=== PATIENT | female | born 1965 | race Caucasian/White ===

== ENCOUNTER 2021-08-24 18:43 | Emergency (ER) | payer OTHER, SELFPAY ==
--- NOTE | 2021-08-24 18:44 | ECG_ITS ---
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 Measurements Intervals [place] Rate: 69 P: 84 MI: 159 QRS: 64 QRSD: 101 T: 67 QT: 406 QTc: 437 Interpretive Statements SINUS RHYTHM INCOMPLETE RIGHT BUNDLE BRANCH BLOCK Compared to ECG 08/24/2021 18:54:43 Left anterior fascicular block no longer present Electronically Signed On 08-25-2021 16:43:33 CDT by Kinsey Estrada M.D. [id number]
--- NOTE | 2021-08-24 18:49 | XRR_ITS ---
PROCEDURE INFORMATION: Exam: XR Chest Exam date and time: 08/24/2021 5:56 PM Age: 55 years old Clinical indication: Pain; Angina pectoris; Additional info: Cp, PT did not want to remove bra for xray TECHNIQUE: Imaging protocol: XR of the chest. Views: 1 view. COMPARISON: CR Chest 1 [place] [id number] 11/18/2014 2:02 PM FINDINGS: Lungs: The lungs are clear. Pleural spaces: Unremarkable. No pleural effusion. No pneumothorax. Heart/Mediastinum: Unremarkable. No cardiomegaly. Bones/joints: No acute fracture is visualized. Soft tissues: Surgical clips are again seen in the right chest wall/right breast region. XR/XR chest 1V portable [id number] IMPRESSION: No acute cardiopulmonary abnormality is seen.
[2021-08-24 18:50] VITALS: BP 128/68; PULSE 78; RESP 18; TEMP 36.7; O2SAT 95; BMI 27.2
--- NOTE | 2021-08-24 19:07 | ED_ITS ---
HPI - Chest Pain General: Chief Complaint: Chest Pain Stated Complaint: Chest Pain Time Seen by Provider: 08/24/21 19:00 Source: patient Mode of arrival: ambulatory Limitations: no limitations History of Present Illness: 55-year-old female who states that she has been having chest pains over the last 2 days. States has been having a sharp pain in the right side of her chest that seem to go to her shoulder along with her back with some dyspnea. States she does have some tenderness over her chest wall denies any diaphoresis. She states the pain is mainly been constant and has no worsening improving factors. States pain currently is a 5 out of 10 no vomiting no abdominal pain. Associated symptoms: Reports dyspnea; Deny abdominal pain, fever(s), nausea or vomiting Review of Systems Const: Denies: fever(s), chills, body aches or change in appetite Eyes: Denies: blurry vision or eye discomfort ENMT: Denies: throat pain or dental pain Card: Reports: chest pain Resp: Reports: dyspnea GI: Denies: abdominal pain, nausea, vomiting or diarrhea : Denies: dysuria Musc: Denies: neck pain or back pain Skin/Breast: Denies: rash Neuro: Denies: headache(s) Psych: Denies: depression Rob/Lymph: Denies: easy bruising All/Imm: Denies: urticaria PFSH ED PFSH: Medical History Depression Hyperlipidemia Surgical History No pertinent past surgical history Social History Smoking and tobacco status: current every day smoker Physical Exam Const: COMMON NORMALS: no acute distress, patient oriented x3 and healthy appearing HENMT: COMMON NORMALS: normocephalic and atraumatic HEAD & SCALP: normocephalic and atraumatic Eye: COMMON NORMALS: Equal, round and reactive pupils present and EOMs intact bilaterally PUPIL: Yes Equal, round and reactive pupils present Neck/C-Spine: COMMON NORMALS: full ROM and supple Chest: COMMONS NORMALS: normal inspection of the chest; negative for normal palpation of entire chest wall (right side chest tenderness) Resp: COMMON NORMALS: normal respiratory effort, No retractions, No use of accessory muscles and clear to auscultation bilaterally AUSCULTATION: clear to auscultation bilaterally Cardio: COMMON NORMALS: regular rate, regular rhythm and No murmurs present (Cardio) RATE: regular rate RHYTHM: regular rhythm GI: COMMON NORMALS: Normal to inspection, nondistended, normoactive bowel sounds present, Soft to palpation, non-tender and no masses PALPATION: Yes Soft to palpation Extremity: COMMON NORMALS: normal to inspection and full ROM Neuro: COMMON NORMALS: patient oriented x3, moves all extremities and no focal motor deficits Psych: COMMON NORMALS: mental status grossly normal, Normal thought process present and cooperative THOUGHT PROCESS: Normal thought process present Skin: COMMON NORMALS: no rashes or lesions noted and no wounds GENERAL SKIN EXAM: no rashes or lesions noted Course Vital Signs: Vital signs: Vital Signs Temperature 98.0 F 08/24/21 18:50 Pulse Rate 78 08/24/21 18:50 Respiratory Rate 18 08/24/21 18:50 Blood Pressure 128/68 08/24/21 18:50 Pulse Oximetry 95 08/24/21 18:50 MDM - Chest Pain Medical Decision Making Patient presents here with chest pains atypical in nature likely muscle skeletal as she is tender on exam. Patient's initial repeat troponin here negative D- dimer is negative as well she has no signs of aortic dissection or pulmonary embolism she is stable for discharge is to follow-up with her PCP in 3 to 5 days and return if worsening she understands and agrees to plan. Lab Data : 08/24/21 19:10 08/24/21 19:10 Radiology Impressions Chest X-Ray 08/24/21 18:49 IMPRESSION: No acute cardiopulmonary abnormality is seen. Laboratory Results WBC 13.0 10^3/uL (4.0-10.0) H 08/24/21 19:10 RBC 5.21 10^6/uL (4.1-5.3) 08/24/21 19:10 Hgb 13.6 g/dL (11.5-15.3) 08/24/21 19:10 Hct 43.8 % (37.0-47.0) 08/24/21 19:10 MCV 84.1 fl (81-99) 08/24/21 19:10 MCH 26.1 pg (28.0-34.0) L 08/24/21 19:10 MCHC 31.1 g/dL (30.0-36.0) 08/24/21 19:10 RDW 15.6 % (12.1-15.1) H 08/24/21 19:10 Plt Count 316 10^3/cmm (130-400) 08/24/21 19:10 MPV 11.5 fL (7.4-10.4) H 08/24/21 19:10 Neut % (Auto) 41.1 % 08/24/21 19:10 Lymph % (Auto) 46.5 % 08/24/21 19:10 Hendricks % (Auto) 9.2 % 08/24/21 19:10 Eos % (Auto) 2.5 % 08/24/21 19:10 Baso % (Auto) 0.5 % 08/24/21 19:10 Neut # (Auto) 5.33 10^3/uL (1.8-7.7) 08/24/21 19:10 Lymph # (Auto) 6.0 10^3/uL (0.8-4.8) H 08/24/21 19:10 Hendricks # (Auto) 1.2 10^3/uL (0.2-0.9) H 08/24/21 19:10 Eos # (Auto) 0.3 10^3/uL (0.0-0.8) 08/24/21 19:10 Baso # (Auto) 0.1 10^3/uL (0.0-0.1) 08/24/21 19:10 Nucleated RBC % (auto) 0 % 08/24/21 19:10 Nucleated RBCs # 0.0 /100WBC 08/24/21 19:10 D-Dimer <= 0.27 ug/mIFEU (0-0.59) 08/24/21 19:10 Sodium 140 mmol/L (136-145) 08/24/21 19:10 Potassium 4.1 mmol/L (3.5-5.1) 08/24/21 19:10 Chloride 104 mmol/L (98-107) 08/24/21 19:10 Carbon Dioxide 23 mmol/L (22-29) 08/24/21 19:10 Anion Gap 17.1 (5-19) 08/24/21 19:10 BUN 11 mg/dL (6-20) 08/24/21 19:10 Creatinine 0.4 mg/dL (0.5-0.9) L 08/24/21 19:10 GFR Calculation 166.3 mL/min (90-130) H 08/24/21 19:10 Glucose 91 mg/dL (65-115) 08/24/21 19:10 Calculated Osmolality 289 mOsm/kg (285-295) 08/24/21 19:10 Calcium 9.6 mg/dL (8.5-10.5) 08/24/21 19:10 Total Bilirubin 0.2 mg/dL (0.15-1.2) 08/24/21 19:10 AST 21 U/L (0-32) 08/24/21 19:10 ALT 19 U/L (0-33) 08/24/21 19:10 Alkaline Phosphatase 101 IU/L (35-105) 08/24/21 19:10 Troponin T Baseline 6 ng/L (0-10) 08/24/21 19:10 Troponin T 120 Minute 7.74 ng/L (0-10) 08/24/21 20:59 Delta Troponin T 1.74 ABS# (0-10) 08/24/21 20:59 Total Protein 7.2 g/dL (6.6-8.7) 08/24/21 19:10 Albumin 4.4 g/dL (3.5-5.2) 08/24/21 19:10 Globulin 2.8 g/dL (1.3-4.6) 08/24/21 19:10 EKG Data EKG 1: I personally reviewed and interpreted this EKG as follows: EKG interpretation date: 08/24/21 EKG interpretation time: 18:54 Interpretation: nsr hr [address] or t wave abnormalities qrs 97 qtc 409 Discharge Plan Discharge Patient Disposition: Home Clinical Impression: Chest pain Condition: Stable Prescriptions: No Action montelukast 10 mg tablet 10 mg PO DAILY 0RF rosuvastatin 10 mg tablet 10 mg PO DAILY 0RF venlafaxine 37.5 mg tablet 37.5 mg PO DAILY 0RF clobetasol 0.05 % ointment 1 applic topical BID 14 Days Qty: 45 2RF Rx Instructions: Apply to affected area for 2 weeks and alternate with Triamcinolone. Not for face or skin folds. triamcinolone acetonide 0.1 % ointment 1 applic topical BID Qty: 30 2RF Rx Instructions: Apply to affected area for 2 weeks and alternate with Clobetasol. Not for fa ce. Discharge Orders: Discharge ED (Routine); Ordered 08/24/21 Ordered By: Herbert Jay Referrals: Sophia Simms FNP [Primary Care Provider] - Discharge Diet: Advance as tolerated Discharge Activity: Resume usual activity Patient Instructions: Chest Pain (ED) Coding Level of Care Code ED Event Marketing Specialist for Chg Fwd Exam Comprehensive
[2021-08-24 19:29] LABS: Basophils # 0.1 10^3/uL (0.0-0.1); Basophils % 0.5 %; Eosinophils # 0.3 10^3/uL (0.0-0.8); Eosinophils % 2.5 %; Hematocrit 43.8 % (37.0-47.0); Hemoglobin 13.6 g/dL (11.5-15.3); Lymphocytes % 46.5 %; Mean Corpuscular HGB Conc 31.1 g/dL (30.0-36.0); Mean Corpuscular Hemoglobin 26.1 pg (28.0-34.0); Mean Corpuscular Volume 84.1 fl (81-99); Mean Platelet Volume 11.5 fL (7.4-10.4); Monocytes # 1.2 10^3/uL (0.2-0.9); Monocytes % 9.2 %; Neutrophils # 5.33 10^3/uL (1.8-7.7); Neutrophils % 41.1 %; Nucleated Red Blood Cells % 0 %; Platelet Count 316 10^3/cmm (130-400); Red Blood Count 5.21 10^6/uL (4.1-5.3); Red Cell Distribution Width 15.6 % (12.1-15.1)
[2021-08-24 19:49] LABS: Alanine Aminotransferase 19 U/L (0-33); Albumin Level 4.4 g/dL (3.5-5.2); Alkaline Phosphatase 101 IU/L (35-105); Anion Gap 17.1 (5-19); Aspartate Amino Transferase 21 U/L (0-32); Blood Urea Nitrogen 11 mg/dL (6-20); Calcium 9.6 mg/dL (8.5-10.5); Carbon Dioxide 23 mmol/L (22-29); Chloride 104 mmol/L (98-107); Globulin 2.8 g/dL (1.3-4.6); Glomerular Filtration Rate 166.3 mL/min (90-130); Glucose 91 mg/dL (65-115); Osmolality Calculated 289 mOsm/kg (285-295); Potassium 4.1 mmol/L (3.5-5.1); Sodium 140 mmol/L (136-145); Total Bilirubin 0.2 mg/dL (0.15-1.2); Total Protein 7.2 g/dL (6.6-8.7)
[2021-08-24 19:50] LABS: Troponin(5th) Baseline 6 ng/L (0-10)
[2021-08-24 19:54] LABS: Slide Review Slide Review Perform
[2021-08-24] MEDS: ondansetron 2 mg/ML SDV 2 mL 4 MG IVP (20:15)
[2021-08-24] MEDS: morphine 4 mg/mL SDV 1 mL IVP (20:15)
[2021-08-24 20:21] LABS: D Dimer <= 0.27 ug/mIFEU (0-0.59)
--- NOTE | 2021-08-24 20:44 | ECG_ITS ---
[facility] Test Date: 2021-08-24 Pat Name: Arlette Lopez Department: Room: Gender: Female Director Hris: : 1965 Requested By: Herbert Jay Order Number: [id number] Jay MD: Juan Jose Culp M.D. Measurements Intervals [place] Rate: 72 P: 79 ND: 142 QRS: -57 QRSD: 97 T: 82 QT: 385 QTc: 423 Interpretive Statements SINUS RHYTHM INCOMPLETE RIGHT BUNDLE BRANCH BLOCK [90+ ms QRS DURATION, TERMINAL R IN V1/V2, 40+ ms S IN I/aVL/V4/V5/V6] LEFT ANTERIOR FASCICULAR BLOCK [QRS AXIS <= -45, QR IN I, RS IN II] No previous ECG available for comparison Electronically Signed On 08-24-2021 20:43:34 CDT by Juan Jose Culp M.D. [email or web address]/store/[id number]
[2021-08-24 21:31] LABS: Troponin 5 2HR 7.74 ng/L (0-10)
[2021-08-24 21:38] LABS: Troponin 5 2HR Delta 1.74 ABS# (0-10)
== END 2021-08-24 21:56 | disposition home or self-care (01) ==
PROVIDERS: Emergency Provider Emergency Medicine; PCP Nurse Practitioner Family
DX: R07.9 Chest pain, unspecified (principal); E78.5 Hyperlipidemia, unspecified; F17.210 Nicotine dependence, cigarettes, uncomplicated
CPT/HCPCS: 71045; 80053; 84484; 85025; 85378; 93005; 96374; 96375; 99284; J2270; J2405

== ENCOUNTER 2022-01-07 13:02 | Outpatient (CLI) | payer OTHER, SELFPAY ==
--- NOTE | 2022-01-07 12:45 | USCV_ITS ---
Arlette Lopez Age: 56 Gender: F : 1965 Exam Date: 01/07/2022 14:07 Ordering Phys: Derrick Guillen M.D ([email or web address]) Technologist: DEVI [place]am Location[place] [facility] [place] Indication: cp, palpitations BP: 108 / 60 HR: 69 Rhythm: Sinus Technical Quality: adequate MEASUREMENTS (Male / Female) Normal Values 2D ECHO LV Diastolic Diameter PLAX 3.9 cm 4.2 - 5.9 / 3.9 - 5.3 cm LV Systolic Diameter PLAX 2.4 cm IVS Diastolic Thickness 0.9 cm 0.6 - 1.0 / 0.6 - 0.9 cm IVS Systolic Thickness 1.3 cm LVPW Diastolic Thickness 1.1 cm 0.6 - 1.0 / 0.6 - 0.9 cm LVPW Systolic Thickness 1.4 cm LVOT Diameter 2.0 cm LV Ejection Fraction 2D Teich 69.4 % LV Ejection Fraction MOD 2C 77.3 % LV Ejection Fraction 2C AL 77.6 % LA Diameter 2.7 cm RA Width 2.3 cm RA Height 3.5 cm Aorta at Sinotubular Diameter 1.9 cm M-MODE MV E Point Septal Separation 0.1 cm DOPPLER AV Peak Velocity 103.0 cm/s LVOT Peak Velocity 99.0 cm/s AV Area Cont Eq vti 2.9 cm squared AV Area Cont Eq pk 2.9 cm squared MV Area PHT 3.9 cm squared Mitral E to A Ratio 1.5 MV E' Velocity 59.0 cm/s Mitral E to MV E' Ratio 8.9 Mitral E to LV E' Lateral Ratio 9.9 Mitral E to LV E' Septal Ratio 8.1 TR Peak Velocity 261.0 cm/s TR Peak Gradient 27.2 mmHg Right Atrial Pressure 5.0 mmHg Pulmonary Artery Systolic Pressu 32.2 mmHg PV Peak Velocity 73.0 cm/s FINDINGS Left Ventricle Normal left ventricular size. LV systolic function is normal with EF of 55-60%. No regional wall motion abnormalities. Diastolic function is normal Right Ventricle The right ventricle is normal in size and function. Right Atrium The right atrium is normal in size. Left Atrium The left atrium is normal in size. Mitral Valve Structurally normal mitral valve without significant stenosis or prolapse. There is trace mitral regurgitation. Aortic Valve Structurally normal aortic valve without significant sclerosis or stenosis. There is no aortic regurgitation. Tricuspid Valve Structurally normal tricuspid valve without significant stenosis. Mild tricuspid regurgitation. Pulmonary artery systolic pressure is normal. Pulmonic Valve Not well-visualized Pericardium Normal pericardium without effusion. Aorta Normal ascending aorta dimension. IVC CONCLUSIONS LV systolic function is normal with EF of 55 to 60%. Diastolic function is normal. Trace mitral regurgitation. Mild tricuspid regurgitation. No comparison studies are available. Derrick Guillen MD (Electronically Signed) Final Date: 16 January 2022 10:51 S
== END 2022-01-07 13:03 | disposition home or self-care (01) ==
LOC: RAD 13:02
PROVIDERS: PCP Nurse Practitioner Family; Visit Provider Internal Medicine
DX: R06.02 Shortness of breath (principal); R00.2 Palpitations; R07.9 Chest pain, unspecified; I08.1 Rheumatic disorders of both mitral and tricuspid valves
CPT/HCPCS: 93306

== ENCOUNTER 2022-01-14 06:56 | Outpatient (CLI) | payer OTHER, SELFPAY ==
--- NOTE | 2022-01-14 | ECG_ITS ---
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 Interpretive Statements NAME OF STUDY: LEXISCAN SESTAMIBI STRESS TEST INDICATION: [SOB] Procedure: At the baseline, the blood pressure was 108/68 mmHg with a heart rate of 65 bpm. The electrocardiogram showed normal sinus rhythm, normal axis with normal ST and T's. The Lexiscan was infused over a period of 20 seconds. A total of 0.4 mg of Lexiscan was infused. The stress phase was continued for a total of 5 minutes. Heart rate was at the end of stress phase was 91 bpm and a blood pressure of 91/58 mmHg. The EKG at the peak infusion revealed since normal sinus rhythm with no significant ST-T wave changes. Sestamibi was injected 20 seconds after the Lexiscan infusion. Blood pressure at the end of recovery phase was 97/59 mmHg with a heart rate of 83 bpm. Conclusion: 1. Normal EKG response to Lexiscan infusion 2. No Lexiscan induced chest pain or cardiac arrhythmia. 3. Normal blood pressure and heart rate response. 4. Sestamibi/sestamibi perfusion scan pending; see separate report. Electronically Signed On 01-25-2022 0:12:11 CDT by Derrick Guillen M.D. [email or web address].[email or web address]/store/[id number]
--- NOTE | 2022-01-14 07:03 | NMCV_ITS ---
NM brenna perf SPECT r/s* [id number] Arlette Lopez Age: 56 Gender: F : 1965 Exam Date: 01/14/2022 08:02 Ordering Phys: Derrick Guillen M.D ([email or web address]) Technologist: ZI Lawler Exam Location: [facility] Indications: SHORTNESS OF BREATH STRESS TEST Please [facility] IMAGE PROTOCOL Rest/Stress 1 Lexiscan Day Radiopharmaceutical Dose (mCi) Administration Site Administered by Rest: Tc-99m 10.8 IV ZI Farr Sestamibi Stress:Tc-99m 33.0 IV ZI Farr Sestamibi Rest: 14-Jan-2022 60 Discovery 630 Stress: 14-Jan-2022 30 Discovery 630 0.4mg Lexiscan. Images obtained in supine and prone position. SPECT RESULTS Technical Quality: Excellent Raw Data Analysis: Normal Image Corrections: No attenuation or motion correction applied Summed Stress Score: 0 Summed Rest Score: 3 Summed Difference Score: 0 PERFUSION FINDINGS SPECT images demonstrate homogeneous tracer distribution throughout the myocardium. FUNCTIONAL RESULTS (calculated via Gated SPECT) Stress Image LV EF (%): 87 Stress EDV (mL):60 TID: 1.29 Stress ESV (mL):8 FUNCTIONAL FINDINGS: There is normal left ventricular systolic function. Elevated TID ratio IMPRESSIONS 1. Normal myocardial perfusion imaging with no evidence of ischemia 2. LV systolic function is normal Derrick Guillen MD (Electronically Signed) Final Date: 15 January 2022 14:37 S
[2022-01-14 07:14] VITALS: BMI 28.5
[2022-01-14] MEDS: regadenoson 0.4 Mg/5 ml Syringe IVP (08:34)
[2022-01-14 09:13] VITALS: BP 100/62; PULSE 85
== END 2022-01-14 06:57 | disposition home or self-care (01) ==
LOC: CDL 06:56
PROVIDERS: PCP Nurse Practitioner Family; Visit Provider Internal Medicine
DX: R06.02 Shortness of breath (principal)
CPT/HCPCS: 78452; 93017; A9500; J2785

== ENCOUNTER 2023-05-16 16:53 | Emergency (ER) | payer OTHER, SELFPAY ==
[2023-05-16 17:22] VITALS: BP 118/78; PULSE 66; RESP 18; TEMP 36.7; O2SAT 98; BMI 26.4
[2023-05-16 17:58] LABS: Basophils # 0.1 10^3/uL (0.0-0.1); Basophils % 0.6 %; Eosinophils # 0.3 10^3/uL (0.0-0.8); Eosinophils % 2.5 %; Hematocrit 44.2 % (36-47); Lymphocytes # 6.3 10^3/uL (0.8-4.8); Lymphocytes % 49.4 %; Mean Platelet Volume 11.2 fL (7.4-10.4); Monocytes # 0.8 10^3/uL (0.2-0.9); Monocytes % 6.4 %; Neutrophils # 5.17 10^3/uL (1.8-7.7); Neutrophils % 40.9 %; Nucleated Red Blood Cells % 0 %; Platelet Count 307 10^3/cmm (157-399); Red Blood Count 5.26 10^6/uL (3.85-5.65); Red Cell Distribution Width 15.9 % (12.1-15.1); White Blood Count 12.64 10^3/uL (3.29-11.43)
--- NOTE | 2023-05-16 18:07 | CTR_ITS ---
PROCEDURE INFORMATION: Exam: CT Abdomen And Pelvis With Contrast Exam date and time: 05/16/2023 6:49 PM Age: 57 years old Clinical indication: Abdominal pain; Flank; Left; Prior surgery; Surgery date: 6+ months; Surgery type: Partial hyster; Additional info: Flank pain and llq abdominal pain. , Patient is also having back pain. Please comment on the TECHNIQUE: Imaging protocol: Computed tomography of the abdomen and pelvis with contrast. Radiation optimization: All CT scans at this facility use at least one of these dose optimization techniques: automated exposure control; mA and/or kV adjustment per patient size (includes targeted exams where dose is matched to clinical indication); or iterative reconstruction. Contrast material: OMNI 350; Contrast volume: 100 ml; Contrast route: INTRAVENOUS (IV); REPORTING DATA: Count of CT and Cardiac NM exams in prior 12 months: This patient has received 0 known CTs and 0 known cardiac nuclear medicine studies in the 12 months prior to the current study. COMPARISON: US gall bladder [id number] 09/01/2021 8:20 AM RADIATION DOSE METRICS: Total DLP (mGy-cm): 407.22 FINDINGS: Liver: Normal. No mass. Gallbladder and bile ducts: Normal. No calcified stones. No ductal dilation. Pancreas: Normal. No ductal dilation. Spleen: Atrophic spleen. Question prior injury. Adrenal glands: Normal. No mass. Kidneys and ureters: Normal. No hydronephrosis. Stomach and bowel: Unremarkable. No obstruction. No mucosal thickening. Appendix: No evidence of appendicitis. Intraperitoneal space: Unremarkable. No free air. No significant fluid collection. Vasculature: Unremarkable. No abdominal aortic aneurysm. Lymph nodes: Unremarkable. No enlarged lymph nodes. Urinary bladder: Unremarkable as visualized. Reproductive: Unremarkable as visualized. Bones/joints: Unremarkable. No acute fracture. Soft tissues: Unremarkable. CT/CT abdomen pelvis w con* [id number] IMPRESSION: 1. No bowel obstruction or inflammatory process associated with the bowel. 2. No free air or significant free fluid in the abdomen or pelvis. 3. The appendix images normally. 4. No hydronephrosis or renal calculus. No stone in the bladder.
--- NOTE | 2023-05-16 18:09 | ED_ITS ---
HPI - Abdominal Pain 2 General: Chief Complaint: Abdominal Pain Stated Complaint: sent over by anatoly espinosa lower back pain/ stomac Time Seen by Provider: 05/16/23 17:23 History of Present Illness: Patient is a 57-year-old female with a past medical history significant for hyperlipidemia and depression who presents to the emergency department for evaluation of left lower quadrant abdominal pain. Patient reports that over the last month she has been struggling with frequent urinary tract infections and has taken 3 courses of antibiotics. Patient states that she took her last dose of antibiotic last week. Patient states that she no longer has urinary symptoms, however, on approximately 05/12/2023 she started to experience left lumbar back pain. Patient denies any trauma or event that could have elicited her symptoms. Patient originally thought nothing of it, however, on 05/14/2023 the pain started to migrate into the left lower quadrant of her abdomen. Patient states that she was advised by her primary care provider to present to the emergency department to receive a CAT scan to rule out diverticulitis or kidney stone. Patient currently rates her pain as a 9 out of 10 in severity that she describes as a sharp/stabbing sensation. She denies constipation, diarrhea, dysuria, hematuria, chest pain, shortness of breath, palpitations, fever, chills, nausea, vomiting, numbness or tingling in the bilateral lower extremities, saddle anesthesia, bowel or bladder incontinence, or history of IV drug abuse. Or any other associated symptoms. No other complaints at this time. Associated Symptoms: Denies chills, constipation, diarrhea, dysuria, fever(s), hematuria, nausea and vomiting Review of Systems 2 General: Reports: 10 or more systems reviewed and unremarkable except in HPI and below Const: Denies: fever(s) or chills Eyes: Denies: change in vision or blurry vision ENMT: Denies: throat pain, ear or mastoid pain, ear discharge, nasal discharge or nasal congestion Card: Denies: chest pain, palpitations or lightheadedness Resp: Denies: dyspnea, productive cough, non-productive cough or wheezing GI: Reports: abdominal pain; Denies: nausea, vomiting, diarrhea or constipation : Reports: flank pain; Denies: dysuria or hematuria Musc: Reports: back pain; Denies: neck pain or extremity pain Skin/Breast: Denies: rash PFSH ED 2 PFSH: Medical History Depression Hyperlipidemia Surgical History No pertinent past surgical history Family History Father Hypertension Heart attack Social History Smoking and tobacco/nicotine status: current every day tobacco/nicotine user Alcohol intake: current Alcohol intake frequency: holidays/special occasions only Substance/Drug Use: never Physical Exam 2 Const: COMMON NORMALS: no acute distress, average body habitus, patient oriented x3 and alert HENMT: COMMON NORMALS: normocephalic, atraumatic, moist oral mucous membranes and oropharynx normal HEAD & SCALP: normocephalic and atraumatic Eye: COMMON NORMALS: Equal, round and reactive pupils present, EOMs intact bilaterally, conjunctivae normal and no scleral icterus CONJUNCTIVA: Yes conjunctivae normal PUPIL: Yes Equal, round and reactive pupils present Neck/C-Spine: COMMON NORMALS: full ROM, no lymphadenopathy, supple, no meningeal signs and no JVD Chest: COMMONS NORMALS: normal inspection of the chest Resp: COMMON NORMALS: normal respiratory effort, No retractions, No use of accessory muscles and clear to auscultation bilaterally AUSCULTATION: clear to auscultation bilaterally Cardio: COMMON NORMALS: no JVD, regular rate, regular rhythm, No gallops present (Cardio), No clicks present (Cardio), No murmurs present (Cardio) and No rub (Cardio) RATE: regular rate RHYTHM: regular rhythm GI: OTHER: Normoactive bowel sounds in all 4 quadrants. Left lower and left upper quadrant tenderness noted to palpation. No McBurney's point tenderness, Enamorado sign, or peritoneal signs noted. No evidence of rebound tenderness. Back/Pelvis: OTHER: Left CVA tenderness noted to palpation. No midline vertebral tenderness is noted to the thoracic or lumbar spine. No bony abnormalities or step-offs noted. No swelling, erythema, or ecchymosis appreciated to the affected area. Extremity: OTHER: Moving bilateral upper and lower extremities without weakness or deficit. Neuro: COMMON NORMALS: patient oriented x3 SENSORIUM/ORIENTATION: Yes alert MENINGEAL SIGNS: Yes no meningeal signs OTHER: Sensation intact to the bilateral upper and lower extremities. Patient is alert and oriented x 4. No focal neurological deficits noted on examination. Course 2 Vital Signs: Vital signs: Vital Signs Temperature 98.1 F 05/16/23 17:22 Pulse Rate 66 05/16/23 18:18 Respiratory Rate 18 05/16/23 17:22 Blood Pressure 119/57 05/16/23 18:18 Pulse Oximetry 98 05/16/23 18:18 Oxygen Delivery Me thod Room Air 05/16/23 18:18 MDM - Abdominal Pain Medical Decision Making Patient is a 57-year-old female with a past medical history significant for hyperlipidemia and depression who presents to the emergency department for evaluation of left lower quadrant abdominal pain. On physical examination patient is nontoxic and in no acute distress. Vital signs remained stable throughout the ED course. Patient is afebrile. Patient is neurovascularly intact. CBC showed mild leukocytosis at 12.64. Patient states that she has chronic leukocytosis and this is not necessarily a new symptom for her. CMP, lipase, and urinalysis all grossly unremarkable. CT of the abdomen and pelvis with contrast showed no acute intra-abdominal pathology. Based off history and physical examination I do not believe the patient's symptoms are emergent and warrant further emergent evaluation at this time. Symptoms likely related to musculoskeletal pain. Patient denies numbness or tingling in the bilateral lower extremities, bowel or bladder incontinence, saddle anesthesia, fever, or history of IV drug abuse. Given the patient's extensive allergy list I will treat with cyclobenzaprine and have the patient follow-up with her primary care provider. A prescription of cyclobenzaprine was sent to her pharmacy be picked up. Take medication as prescribed. Do not drive or operate heavy machinery while taking this medication as it can make you drowsy. Increase oral hydration. Avoid strenuous physical activity for the next several days that can exacerbate your symptoms. Do not bend over to lift heavy objects off the ground. Ice can be placed over the affected area 15 to 20 minutes 5-6 times a day. Call your primary care provider tomorrow with an update of your symptoms and to schedule appointment for further management/evaluation. See handouts over generalize instructions. Return to the emergency department for any rapid or worsening symptoms to include but not limited to numbness or tingling in her bilateral lower extremities, groin numbness, bowel or bladder incontinence, fever, extremity weakness, worsening abdominal pain, or as needed. Patient stated understanding of all discharge instructions was agreeable to plan of care. I discussed the patient's history, exam, and all findings with Dr. Jay in the emergency department who agreed my assessment and plan. He did not feel the patient required admission or further evaluation at this time. Differential diagnosis includes but is not limited to nephrolithiasis, diverticulitis, pancreatitis, urinary tract infection, lumbar back spasm, lumbar back strain, cauda equina syndrome, spinal epidural abscess, discitis, Lab Data 05/16/23 17:41 05/16/23 17:41 Labs/Radiology: Radiology Impressions Abdomen/Pelvis CT 05/16/23 18:07 IMPRESSION: 1. No bowel obstruction or inflammatory process associated with the bowel. 2. No free air or significant free fluid in the abdomen or pelvis. 3. The appendix images normally. 4. No hydronephrosis or renal calculus. No stone in the bladder. Laboratory Results WBC 12.64 10^3/uL (3.29-11.43) H 05/16/23 17:41 RBC 5.26 10^6/uL (3.85-5.65) 05/16/23 17:41 Hgb 13.70 g/dL (11.27-16.99) 05/16/23 17:41 Hct 44.2 % (36-47) 05/16/23 17:41 MCV 84.0 fl (85-98) L 05/16/23 17:41 MCH 26.0 pg (27-33) L 05/16/23 17:41 MCHC 31.0 g/dL (30-55) 05/16/23 17:41 RDW 15.9 % (12.1-15.1) H 05/16/23 17:41 Plt Count 307 10^3/cmm (157-399) 05/16/23 17:41 MPV 11.2 fL (7.4-10.4) H 05/16/23 17:41 Neut % (Auto) 40.9 % 05/16/23 17:41 Lymph % (Auto) 49.4 % 05/16/23 17:41 [place] % (Auto) 6.4 % 05/16/23 17:41 Eos % (Auto) 2.5 % 05/16/23 17:41 Baso % (Auto) 0.6 % 05/16/23 17:41 Neut # (Auto) 5.17 10^3/uL (1.8-7.7) 05/16/23 17:41 Lymph # (Auto) 6.3 10^3/uL (0.8-4.8) H 05/16/23 17:41 [place] # (Auto) 0.8 10^3/uL (0.2-0.9) 05/16/23 17:41 Eos # (Auto) 0.3 10^3/uL (0.0-0.8) 05/16/23 17:41 Baso # (Auto) 0.1 10^3/uL (0.0-0.1) 05/16/23 17:41 Nucleated RBC % (auto) 0 % 05/16/23 17:41 Nucleated RBCs # 0.0 /100WBC 05/16/23 17:41 Sodium 141 mmol/L (136-145) 05/16/23 17:41 Potassium 4.3 mmol/L (3.5-5.1) 05/16/23 17:41 Chloride 105 mmol/L (98-107) 05/16/23 17:41 Carbon Dioxide 24 mmol/L (22-29) 05/16/23 17:41 Anion Gap 16.3 (5-19) 05/16/23 17:41 BUN 11 mg/dL (6-20) 05/16/23 17:41 Creatinine 0.5 mg/dL (0.5-0.9) 05/16/23 17:41 GFR Calculation 127.6 mL/min (90-130) 05/16/23 17:41 Glucose 80 mg/dL (65-115) 05/16/23 17:41 Calculated Osmolality 290 mOsm/kg (285-295) 05/16/23 17:41 Calcium 9.3 mg/dL (8.5-10.5) 05/16/23 17:41 Total Bilirubin 0.2 mg/dL (0.15-1.2) 05/16/23 17:41 AST 24 U/L (0-32) 05/16/23 17:41 ALT 25 U/L (0-33) 05/16/23 17:41 Alkaline Phosphatase 81 U/L (35-105) 05/16/23 17:41 Total Protein 6.9 g/dL (6.6-8.7) 05/16/23 17:41 Albumin 4.5 g/dL (3.5-5.2) 05/16/23 17:41 Globulin 2.4 g/dL (1.3-4.6) 05/16/23 17:41 Lipase 35 U/L (13-60) 05/16/23 17:41 Urine Color Yellow (Yellow) 05/16/23 18:15 Urine Appearance Clear (CLEAR) 05/16/23 18:15 Urine pH 6 (5-7) 05/16/23 18:15 Ur Specific [place] 1.015 (1.005-1.030) 05/16/23 18:15 Urine Protein Neg (Negative) 05/16/23 18:15 Urine Glucose (UA) Norm (Normal) 05/16/23 18:15 Urine Ketones Negative (Negative) 05/16/23 18:15 Urine Blood Neg (Negative) 05/16/23 18:15 Urine Nitrate Negative (Negative) 05/16/23 18:15 Urine Bilirubin Neg (Negative) 05/16/23 18:15 Urine Urobilinogen Norm mg/dL (Negative) 05/16/23 18:15 Ur Leukocyte Esterase Negative (Negative) 05/16/23 18:15 All radiology interpretation(s) finalized by discharge Discharge Plan Discharge Patient Disposition: Home Clinical Impression: Back pain Condition: Stable Prescriptions: New cyclobenzaprine 10 mg tablet 10 mg PO TID PRN (Reason: pain) 7 Days Qty: 21 0RF No Action montelukast 10 mg tablet 10 mg PO DAILY rosuvastatin 10 mg tablet 10 mg PO DAILY venlafaxine 37.5 mg tablet 37.5 mg PO DAILY clobetasol 0.05 % ointment 1 applic topical BID 14 Days Qty: 45 2RF Rx Instructions: Apply to affected area for 2 weeks and alternate with Triamcinolone. Not for face or skin folds. triamcinolone acetonide 0.1 % ointment 1 applic topical BID Qty: 30 2RF Rx Instructions: Apply to affected area for 2 weeks and alternate with Clobetasol. Not for face. Discharge Orders: Discharge ED (Routine); Ordered 05/16/23 Ordered By: Ernesto Frank Referrals: Sophia Simms FNP [Primary Care Provider] - Patient Instructions: Acute Low Back Pain (ED), Lower Back Exercises (ED) Activity Restrictions/Additional Instructions: A prescription of cyclobenzaprine was sent to her pharmacy be picked up. Take medication as prescribed. Do not drive or operate heavy machinery while taking this medication as it can make you drowsy. Increase oral hydration. Avoid strenuous physical activity for the next several days that can exacerbate your symptoms. Do not bend over to lift heavy objects off the ground. Ice can be placed over the affected area 15 to 20 minutes 5-6 times a day. Call your primary care provider tomorrow with an update of your symptoms and to schedule appointment for further management/evaluation. See handouts over generalize instructions. Return to the emergency department for any rapid or worsening symptoms to include but not limited to numbness or tingling in her bilateral lower extremities, groin numbness, bowel or bladder incontinence, fever, extremity weakness, worsening abdominal pain, or as needed. Stand Alone Forms: Work/School Release Coding Level of Care Code ED [employer] for Antonia Medellin
[2023-05-16 18:18] VITALS: BP 119/57; PULSE 66; O2SAT 98
[2023-05-16 18:22] LABS: Alanine Aminotransferase 25 U/L (0-33); Albumin Level 4.5 g/dL (3.5-5.2); Alkaline Phosphatase 81 U/L (35-105); Anion Gap 16.3 (5-19); Aspartate Amino Transferase 24 U/L (0-32); Blood Urea Nitrogen 11 mg/dL (6-20); Calcium 9.3 mg/dL (8.5-10.5); Carbon Dioxide 24 mmol/L (22-29); Chloride 105 mmol/L (98-107); Globulin 2.4 g/dL (1.3-4.6); Glomerular Filtration Rate 127.6 mL/min (90-130); Glucose 80 mg/dL (65-115); Lipase 35 U/L (13-60); Osmolality Calculated 290 mOsm/kg (285-295); Potassium 4.3 mmol/L (3.5-5.1); Sodium 141 mmol/L (136-145); Total Bilirubin 0.2 mg/dL (0.15-1.2); Total Protein 6.9 g/dL (6.6-8.7)
[2023-05-16] MEDS: acetaminophen 325 mg Tablet 650 MG PO (18:27)
[2023-05-16 18:40] LABS: Add Urine Microscopic? NO; Charge for UA Resulting for Rev
[2023-05-16 18:40] LABS: Slide Review Slide Review Perform
[2023-05-16 18:46] LABS: Bilirubin Urine Neg (Negative); Blood Urine Neg (Negative); Glucose Urine UA Norm (Normal); Ketones Urine Negative (Negative); Leukocyte Esterase Urine Negative (Negative); Nitrate Urine Negative (Negative); Protein Urine Neg (Negative); Specific Gravity, Urine 1.015 (1.005-1.030); Urine Appearance Clear (CLEAR); Urine Color Yellow (Yellow); Urobilinogen Urine Norm (Negative); pH Urine 6 (5-7)
[2023-05-16] MEDS: orphenadrine 30 mg/mL Inj 2 mL 60 MG IVP (20:18)
[2023-05-16 20:58] VITALS: BP 117/67; PULSE 71; RESP 16; O2SAT 96
== END 2023-05-16 20:49 | disposition home or self-care (01) ==
PROVIDERS: Emergency Medicine; Emergency Provider Physician Assistant; PCP Nurse Practitioner Family
DX: M54.9 Dorsalgia, unspecified (principal); E78.5 Hyperlipidemia, unspecified; Z72.0 Tobacco use
CPT/HCPCS: 74177; 80053; 81003; 83690; 85025; 96374; 99285; J2360; Q9967

== ENCOUNTER 2023-06-22 13:46 | Outpatient (CLI) | payer OTHER, SELFPAY ==
--- NOTE | 2023-06-22 13:48 | MM_ITS ---
WS: [id number] BILATERAL 3D TOMOSYNTHESIS DIGITAL SCREENING MAMMOGRAPHY WITH CAD CLINICAL INFORMATION: SCREENING HISTORY: Screening mammogram. No current complaints. COMPARISON: 2019 TECHNIQUE: Bilateral CC and MLO views. FINDINGS: The breasts are composed of heterogeneous fibroglandular density tissue, which can limit the detectio n of small underlying mass lesions. 9 mm ovoid asymmetric density posterior depth LEFT breast near th e 12 o'clock position. Recommend further evaluation with LEFT diagnostic mammography and ultrasound i f persistent. RIGHT breast appears unchanged. IMPRESSION: MM/[place] [id number] BI-RADS: 0-Incomplete: Need additional imaging evaluation FOLLOW UP: Need Additional Imaging Recommend LEFT breast diagnostic mammography and ultrasound.
== END 2023-06-22 13:47 | disposition home or self-care (01) ==
LOC: RAD 13:46
PROVIDERS: PCP Nurse Practitioner Family; Visit Provider Nurse Practitioner Family
DX: Z12.31 Encounter for screening mammogram for malignant neoplasm of breast (principal); R92.323 Mammographic fibroglandular density, bilateral breasts; N64.89 Other specified disorders of breast
CPT/HCPCS: 77063; 77067

== ENCOUNTER 2023-07-18 14:39 | Outpatient (CLI) | payer OTHER, SELFPAY ==
--- NOTE | 2023-07-18 14:58 | MM_ITS ---
WS: [id number] LEFT 3D TOMOSYNTHESIS DIGITAL MAMMOGRAPHY WITH CAD CLINICAL INFORMATION: ABNORMAL MAMMO HISTORY: Additional views COMPARISON: 06/22/2023 TECHNIQUE: 3 views of the left breast were obtained. FINDINGS: The left breast is composed of heterogeneous fibroglandular density tissue, which can limit the detec tion of small underlying mass lesions. Previously described 9 mm ovoid asymmetric density posterior d epth LEFT breast in the 12 o'clock position is unchanged. Ultrasound is pending. ULTRASOUND BREAST LEFT TECHNIQUE: Ultrasound left breast focused area of concern. CLINICAL INFORMATION: ABNORMAL MAMMO FINDINGS: Ultrasound LEFT breast 12 o'clock position posterior depth. Dense underlying parenchymal tissue. No v isualized cystic or solid lesions. No suspicious lesions to target for biopsy. Findings are benign. R ecommend return to annual screen mammography. IMPRESSION: MM/[place] [id number] BI-RADS: 2-Benign FOLLOW UP: 1 Year Follow-up Recommend return to annual screening mammography.
== END 2023-07-18 14:40 | disposition home or self-care (01) ==
LOC: RAD 14:41
PROVIDERS: PCP Nurse Practitioner Family; Visit Provider Nurse Practitioner Family
DX: R92.8 Other abnormal and inconclusive findings on diagnostic imaging of breast (principal); R92.30 Dense breasts, unspecified
CPT/HCPCS: 76642; 77061; G0279

== ENCOUNTER 2024-08-20 12:29 | Outpatient (CLI) | payer OTHER, SELFPAY ==
--- NOTE | 2024-08-20 12:37 | MM_ITS ---
WS: [id number] BILATERAL 3D TOMOSYNTHESIS DIGITAL SCREENING MAMMOGRAPHY WITH CAD CLINICAL INFORMATION: SCREENING HISTORY: Screening mammogram. No current complaints. COMPARISON: 2023 TECHNIQUE: Bilateral CC and MLO views. FINDINGS: The breasts are composed of heterogeneous fibroglandular density tissue, which can limit the detection of small underlying mass lesions. No suspicious mass, asymmetry, calcifications, or architectural distortion. No evidence of malignancy. Few incidental punctate calcifications. MM/MM [facility] tomosynthesis [id number] IMPRESSION: DENSITY: The breasts are heterogeneously dense, which may obscure small masses. BI-RADS: 2 - Benign FOLLOW UP: 1 Year Follow-up Recommend return to annual screening mammography.
== END 2024-08-20 12:30 | disposition home or self-care (01) ==
LOC: RAD 12:32
PROVIDERS: PCP Nurse Practitioner Family; Visit Provider Nurse Practitioner Family
DX: Z12.31 Encounter for screening mammogram for malignant neoplasm of breast (principal); R92.333 Mammographic heterogeneous density, bilateral breasts; R92.1 Mammographic calcification found on diagnostic imaging of breast
CPT/HCPCS: 77063; 77067

== ENCOUNTER 2024-11-08 14:49 | Emergency (ER) | payer OTHER, SELFPAY ==
[2024-11-08 14:53] VITALS: BP 121/78; PULSE 83; RESP 16; TEMP 36.6; O2SAT 97
--- NOTE | 2024-11-08 14:56 | ECG_ITS ---
[employer] Test Date: 2024-11-08 Pat Name: Arlette Lopez Department: Room: Gender: Female [employer]: : 1965 Requested By: Paul Valdes Order Number: [id number] Jay MD: MYKE PHELAN Measurements Intervals [place] Rate: 85 P: 84 NC: 147 QRS: -75 QRSD: 98 T: 72 QT: 371 QTc: 444 Interpretive Statements SINUS RHYTHM INDETERMINATE AXIS LOW QRS VOLTAGE IN PRECORDIAL LEADS [QRS DEFLECTION < 1.0 mV IN CHEST LEADS] INCOMPLETE RIGHT BUNDLE BRANCH BLOCK [90+ ms QRS DURATION, TERMINAL R IN V1/V2, 40+ ms S IN I/aVL/V4/V5/V6] POSSIBLE ANTERIOR MYOCARDIAL INFARCTION , OF INDETERMINATE AGE [30 ms Q WAVE IN V3/V4, OR R < 0.2 mV IN V4] Compared to ECG 08/24/2021 21:07:55 Indeterminate axis now present Low QRS voltage now present Myocardial infarct finding now present Electronically Signed On 11-10-2024 23:48:36 CDT by MYKE PHELAN [email or web address]
--- NOTE | 2024-11-08 15:28 | XRR_ITS ---
PROCEDURE INFORMATION: Exam: XR Chest Exam date and time: 11/08/2024 3:40 PM Age: 59 years old Clinical indication: Pain; Other: Epigastric; Additional info: Epigastric pain TECHNIQUE: Imaging protocol: Radiologic exam of the chest. Views: 1 view. COMPARISON: CR XR chest 2V* [id number] 08/07/2024 9:09 AM FINDINGS: Lungs: Unremarkable. No consolidation. Pleural spaces: Unremarkable. No pleural effusion. No pneumothorax. Heart/Mediastinum: Unremarkable. No cardiomegaly. Bones/joints: See Soft tissues finding. Soft tissues: Surgical clips are again seen overlying the right chest. Absent rib on the right. XR/XR chest 1V portable [id number] IMPRESSION: No acute findings.
[2024-11-08] MEDS: lidocaine 2% viscous 15 ML, aluminum-mag hydrox-simethicon 30 ML, sucralfate oral liq 1 GM PO (15:37)
[2024-11-08 15:41] LABS: Basophils # 0.1 10^3/uL (0.0-0.1); Basophils % 0.8 %; Eosinophils # 0.3 10^3/uL (0.0-0.8); Hematocrit 44.3 % (36-47); Lymphocytes # 4.3 10^3/uL (0.8-4.8); Mean Corpuscular HGB Conc 30.9 g/dL (30-55); Mean Corpuscular Hemoglobin 25.5 pg (27-33); Mean Corpuscular Volume 82.5 fl (85-98); Mean Platelet Volume 12.2 fL (7.4-10.4); Monocytes # 0.9 10^3/uL (0.2-0.9); Neutrophils # 5.64 10^3/uL (1.8-7.7); Nucleated Red Blood Cells % 0 %; Platelet Count 309 10^3/cmm (157-399); Red Blood Count 5.37 10^6/uL (3.85-5.65); Red Cell Distribution Width 15.6 % (12.1-15.1); White Blood Count 11.27 10^3/uL (3.29-11.43)
[2024-11-08 15:47] LABS: Troponin(5th) Baseline < 6 ng/L (0-10)
[2024-11-08 15:56] LABS: Alanine Aminotransferase 22 U/L (0-33); Albumin Level 4.5 g/dL (3.5-5.2); Alkaline Phosphatase 79 U/L (35-105); Aspartate Amino Transferase 23 U/L (0-32); Blood Urea Nitrogen 11 mg/dL (6-20); Calcium 9.7 mg/dL (8.5-10.5); Carbon Dioxide 24 mmol/L (22-29); Chloride 103 mmol/L (98-107); Globulin 2.7 g/dL (1.3-4.6); Glomerular Filtration Rate 102.7 mL/min (90-130); Glucose 85 mg/dL (65-115); Lipase 27 U/L (13-60); NT Pro B Type Natriuretic Pept < 36 pg/mL (0-125); Osmolality Calculated 291 mOsm/kg (285-295); Sodium 141 mmol/L (136-145); Total Bilirubin 0.2 mg/dL (0.15-1.2); Total Protein 7.2 g/dL (6.6-8.7)
[2024-11-08 16:00] VITALS: BP 125/72; PULSE 77; RESP 16; O2SAT 95
[2024-11-08 16:17] LABS: Anion Gap 18.4 (5-19); Potassium 4.4 mmol/L (3.5-5.1)
[2024-11-08 16:30] LABS: Slide Review Slide Review Perform
[2024-11-08] MEDS: pantoprazole 40 mg SDV 80 MG IVP (16:46)
[2024-11-08 17:50] LABS: Troponin 5 2HR < 6.0 ng/L (0-10); Troponin 5 2HR Delta 0 ABS# (0-10)
--- NOTE | 2024-11-08 17:51 | ECG_ITS ---
[employer] 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: : 1965 Requested By: Paul Valdes Order Number: [id number] Jay MD: MYKE PHELAN Measurements Intervals [place] Rate: 72 P: 83 [place]: 159 QRS: -66 QRSD: 100 T: 71 QT: 391 QTc: 430 Interpretive Statements SINUS RHYTHM LOW QRS VOLTAGE IN PRECORDIAL LEADS [QRS DEFLECTION < 1.0 mV IN CHEST LEADS] INCOMPLETE RIGHT BUNDLE BRANCH BLOCK [90+ ms QRS DURATION, TERMINAL R IN V1/V2, 40+ ms S IN I/aVL/V4/V5/V6] LEFT ANTERIOR FASCICULAR BLOCK [QRS AXIS <= -45, QR IN I, RS IN II] POSSIBLE ANTERIOR MYOCARDIAL INFARCTION , OF INDETERMINATE AGE [30 ms Q WAVE IN V3/V4, OR R < 0.2 mV IN V4] Compared to ECG 11/08/2024 14:56:25 Left anterior fascicular block now present Indeterminate axis no longer present Myocardial infarct finding still present Electronically Signed On 11-10-2024 23:53:52 CDT by MYKE PHELAN [email or web address]
--- NOTE | 2024-11-08 18:02 | ED_ITS ---
HPI - Chest Pain 2 General: Chief Complaint: Chest Pain Stated Complaint: chest pains, weakness Time Seen by Provider: 11/08/24 15:03 History of Present Illness: This patient is a 59-year-old white female who presents to the emergency department complaining of left-sided chest pain/epigastric pain. She states it started Tuesday night. She describes it as a sharp sensation. She did have some nausea with it on Tuesday. She is felt somewhat dizzy and short of breath. She has no chronic medical problems. No prior abdominal surgery. She does smoke. Associated symptoms: Reports abdominal pain, dyspnea and nausea Related Data Home Medications ?Medication ?Instructions ?Recorded ?Confirmed montelukast 10 mg tablet 10 mg PO DAILY 08/06/2110/28 albuterol sulfate 90 mcg/actuation 2 puff inhalation Q ID PRN 11/08/24 11/08/24 aerosol inhaler Shortness Of Breath Or Wheez ing ibuprofen 200 mg tablet (Advil) 600 mg PO Q6H PRN Feve r Or Pain 11/08/24 11/08/24 Previous Rx's ?Medication ?Instructions ?Recorded pantoprazole 40 mg tablet,delayed 40 mg PO DAILY #30 t abs 11/08/24 release (Protonix) Allergies Allergy/AdvReac Type Severity Reaction Status Date / Time morphine Allergy Unknown Unknown Verified 01/18/22 13:12 aspirin Allergy stomach Verified 01/18/22 13:12 hurts codeine Allergy stomach Verified 01/18/22 13:12 hurts hydrocodone Allergy throwing up Verified 01/18/22 13:12 naproxen Allergy swelled up Verified 01/18/22 13:12 Review of Systems 2 General: Reports: 10 or more systems reviewed and unremarkable except in HPI and below Resp: Reports: dyspnea GI: Reports: abdominal pain and nausea Neuro: Reports: dizziness PFSH ED 2 PFSH: Medical History Depression Hyperlipidemia Surgical History No pertinent past surgical history Family History Father Hypertension Heart attack Social History (Reviewed 01/18/22 @ 13:41 by Federico Leong Smoking and tobacco/nicotine status: current every day tobacco/nicotine user Alcohol intake: current Alcohol intake frequency: holidays/special occasions only Substance/Drug Use: never Physical Exam 2 Const: COMMON NORMALS: no acute distress, patient oriented x3 and no limitations GENERAL APPEARANCE: cooperative and comfortable HENMT: COMMON NORMALS: normocephalic, atraumatic, Normal nasal mucous membranes and turbinates present, moist oral mucous membranes and oropharynx normal HEAD & SCALP: normal to inspection, normocephalic and atraumatic F SANTOSH & SINUS: normal facial exam NOSE: Normal nasal mucous membranes and turbinates present Eye: COMMON NORMALS: Equal, round and reactive pupils present, EOMs intact bilaterally and conjunctivae normal GENERAL EYE: appearance normal, both eyes and all related structures CONJUNCTIVA: Yes conjunctivae normal PUPIL: Yes Equal, round and reactive pupils present Neck/C-Spine: COMMON NORMALS: supple and no JVD Chest: COMMONS NORMALS: normal inspection of the chest Resp: COMMON NORMALS: normal respiratory effort and clear to auscultation bilaterally AUSCULTATION: clear to auscultation bilaterally Cardio: COMMON NORMALS: no JVD, regular rate, regular rhythm, No gallops present (Cardio), No murmurs present (Cardio) and No rub (Cardio) RATE: r egular rate RHYTHM: regular rhythm GI: COMMON NORMALS: Normal to inspection, nondistended, normoactive bowel sounds present, Soft to palpation and non-tender AUSCULTATION: Yes normoactive bowel sounds PALPATION: Yes Soft to palpation and Yes Tenderness to palpation present (GI) (Palpation of the epigastrium reproduces her discomfort) : COMMON NORMALS: Yes no CVA tenderness BLADDER/KIDNEY EXAM: Yes no CVA tenderness Back/Pelvis: COMMON NORMALS: no CVA tenderness and thoracic and lumbar spine normal to inspection Extremity: COMMON NORMALS: normal to inspection Neuro: COMMON NORMALS: patient oriented x3 and CN's II-XII intact bilaterally Psych: COMMON NORMALS: mental status grossly normal, Normal thought process present and cooperative THOUGHT PROCESS: Normal thought process present Skin: COMMON NORMALS: no rashes or lesions noted, turgor normal and no jaundice GENERAL SKIN EXAM: no rashes or lesions noted and turgor normal Course 2 Vital Signs: Vital signs: Vital Signs Temperature 97.8 F 06/05/25 14:53 Pulse Rate 77 11/08/24 16:00 Respiratory Rate 16 11/08/24 16:00 Blood Pressure 125/72 11/08/24 16:00 Pulse Oximetry 95 11/08/24 16:00 Oxygen Delivery Me thod Room Air 11/08/24 14:53 MDM - Chest Pain Medical Decision Making EKG revealed normal sinus rhythm with no ST segment abnormalities. CBC and CMP normal. Lipase 27. BNP less than 36. Baseline troponin was less than 6 with a 2-hour level of less than 6. Patient was given a GI cocktail which did help relieve her pain. I then gave her 80 of Protonix IV. This does not appear to be cardiac. This appears to be gastritis or acid reflux. Also discussed possibility of being her gallbladder. I did prescribe Protonix and recommended she follow-up with her primary care physician in 1 week for recheck. She may need an ultrasound and/or EGD. She was discharged in stable condition. Lab Data 11/08/24 15:15 11/08/24 15:15 Radiology Impressions Chest X-Ray 11/08/24 15:28 IMPRESSION: No acute findings. Laboratory Results WBC 11.27 10^3/uL (3.29-11.43) 11/08/24 15:15 RBC 5.37 10^6/uL (3.85-5.65) 11/08/24 15:15 Hgb 13.70 g/dL (11.27-16.99) 11/08/24 15:15 Hct 44.3 % (36-47) 11/08/24 15:15 MCV 82.5 fl (85-98) L 11/08/24 15:15 MCH 25.5 pg (27-33) L 11/08/24 15:15 MCHC 30.9 g/dL (30-55) 11/08/24 15:15 RDW 15.6 % (12.1-15.1) H 11/08/24 15:15 Plt Count 309 10^3/cmm (157-399) 11/08/24 15:15 MPV 12.2 fL (7.4-10.4) H 11/08/24 15:15 Neut % (Auto) 50.0 % 11/08/24 15:15 Lymph % (Auto) 38.0 % 11/08/24 15:15 [place] % (Auto) 8.0 % 11/08/24 15:15 Eos % (Auto) 3.0 % 11/08/24 15:15 Baso % (Auto) 0.8 % 11/08/24 15:15 Neut # (Auto) 5.64 10^3/uL (1.8-7.7) 11/08/24 15:15 Lymph # (Auto) 4.3 10^3/uL (0.8-4.8) 11/08/24 15:15 [place] # (Auto) 0.9 10^3/uL (0.2-0.9) 11/08/24 15:15 Eos # (Auto) 0.3 10^3/uL (0.0-0.8) 11/08/24 15:15 Baso # (Auto) 0.1 10^3/uL (0.0-0.1) 11/08/24 15:15 Nucleated RBC % (auto) 0 % 11/08/24 15:15 Nucleated RBCs # 0.0 /100WBC 11/08/24 15:15 Sodium 141 mmol/L (136-145) 11/08/24 15:15 Potassium 4.4 mmol/L (3.5-5.1) 11/08/24 15:15 Chloride 103 mmol/L (98-107) 11/08/24 15:15 Carbon Dioxide 24 mmol/L (22-29) 11/08/24 15:15 Anion Gap 18.4 (5-19) 11/08/24 15:15 BUN 11 mg/dL (6-20) 11/08/24 15:15 Creatinine 0.6 mg/dL (0.5-0.9) 11/08/24 15:15 GFR Calculation 102.7 mL/min (90-130) 11/08/24 15:15 Glucose 85 mg/dL (65-115) 11/08/24 15:15 Calculated Osmolality 291 mOsm/kg (285-295) 11/08/24 15:15 Calcium 9.7 mg/dL (8.5-10.5) 11/08/24 15:15 Total Bilirubin 0.2 mg/dL (0.15-1.2) 11/08/24 15:15 AST 23 U/L (0-32) 11/08/24 15:15 ALT 22 U/L (0-33) 11/08/24 15:15 Alkaline Phosphatase 79 U/L (35-105) 11/08/24 15:15 Troponin T Baseline < 6 ng/L (0-10) 11/08/24 15:15 Troponin T 120 Minute < 6.0 ng/L (0-10) 11/08/24 17:04 Delta Troponin T 0 ABS# (0-10) 11/08/24 17:04 NT-Pro-B Natriuret Pep < 36 pg/mL (0-125) 11/08/24 15:15 Total Protein 7.2 g/dL (6.6-8.7) 11/08/24 15:15 Albumin 4.5 g/dL (3.5-5.2) 11/08/24 15:15 Globulin 2.7 g/dL (1.3-4.6) 11/08/24 15:15 Lipase 27 U/L (13-60) 11/08/24 15:15 All radiology interpretation(s) finalized by discharge Discharge Plan Discharge Patient Disposition: Home Clinical Impression: Acute epigastric pain Condition: Stable Prescriptions: New pantoprazole [Protonix] 40 mg tablet,delayed release (DR/EC) 40 mg PO DAILY Qty: 30 0RF No Action montelukast 10 mg tablet 10 mg PO DAILY ibuprofen [Advil] 200 mg Tablet 600 mg PO Q6H PRN (Reason: Fever Or Pain) albuterol sulfate 90 mcg/actuation HFA aerosol inhaler 2 puff INHALATION QID PRN (Reason: Shortness Of Breath Or Wheezing) Discharge Orders: Discharge ED (Routine); Ordered 11/08/24 Ordered By: Paul Valdes Referrals: Sophia Simms FNP [Primary Care Provider, Unknown] Patient Instructions: Abdominal Pain (ED) Activity Restrictions/Additional Instructions: Follow-up with your primary care provider in 1 week for recheck. Print Language: Pakistani Coding Level of Care Code ED Steam Table Attendant for Antonia Medellin
[2024-11-08 18:26] VITALS: BP 130/77; PULSE 95; O2SAT 96
== END 2024-11-08 18:59 | disposition home or self-care (01) ==
PROVIDERS: Emergency Provider Emergency Medicine; PCP Nurse Practitioner Family
DX: R10.13 Epigastric pain (principal); R78.5 Finding of other psychotropic drug in blood
CPT/HCPCS: 71045; 80053; 83690; 83880; 84484; 85025; 93005; 96374; 99285; J2470; J9999

== ENCOUNTER 2024-12-05 13:29 | Outpatient (CLI) | payer OTHER, SELFPAY ==
--- NOTE | 2024-12-05 13:34 | CT_ITS ---
WS: [id number] LDCT LUNG CANCER SCREENING TECHNIQUE: Noncontrast CT of the chest with coronal and sagittal reformatted images. CLINICAL INFORMATION: NICOTINE DEPENDENCE,CIGARETTES DLP: 51.32 mGy.cm DIvol: Mean CTDIvol: 0.90 (mGy) All CT scans at [facility] use at least one of these dose optimization techniques: automated exposure control; mA and/or kV adjustment per patient size (includes targeted exams where dose is matched to clinical indication); or iterative reconstruction. FINDINGS: Advanced chronic emphysematous changes. Fibrosis in the lung apices. No mediastinal or hilar lymphadenopathy. No axillary lymphadenopathy. A few tiny calcified granulomas. No suspicious pulmonary parenchymal abnormalities. Evidence of prior RIGHT thoracotomy with rib resection. Normal caliber thoracic aorta. Aortic calcification. Coronary calcification. Adrenal glands are normal. Tiny esophageal hiatal hernia. Mild thoracic curve. CT/CT lung screening [id number] IMPRESSION: LUNG-RADS: 2-Benign Appearance or Behavior FOLLOW UP: 12 Month: Continue annual screening with LDCT
== END 2024-12-05 13:30 | disposition home or self-care (01) ==
LOC: RAD 13:30
PROVIDERS: PCP Nurse Practitioner Family; Visit Provider Nurse Practitioner Family
DX: Z12.2 Encounter for screening for malignant neoplasm of respiratory organs (principal); F17.210 Nicotine dependence, cigarettes, uncomplicated
CPT/HCPCS: 71271

== ENCOUNTER 2025-01-22 07:25 | Outpatient (CLI) | payer OTHER, SELFPAY ==
[2025-01-22 07:41] VITALS: BMI 27.2
--- NOTE | 2025-01-22 07:43 | ECG_ITS ---
[employer] [employer] Test Date: 2025-01-22 Pat Name: Arlette Lopez Department: Room: Gender: Female Chief Specialist Leed: : 1965 Requested By: Ruddy Luna Order Number: [id number] Thompson MD: Ruddy Luna M.D. Interpretive Statements procedure: A total of 0.4 mg of Lexiscan was infused over 20 seconds. The stress phase was continued for a total of 5 minutes. Sestamibi was injected 20 seconds after the Lexiscan infusion. Vital signs and ECG findings: The blood pressure at baseline was 116/62 with a heart rate of 78 bpm. The blood pressure after stress was 100/54 with a heart rate of 100 bpm. In recovery the patient's blood pressure was 120/64 with a heart rate of 86 bpm. The resting EKG showed normal sinus rhythm with incomplete right bundle branch block, low voltage, and possible old anterior infarction. There are no ST-T wave changes during stress and recovery. Conclusion: 1. Normal EKG response to Lexiscan infusion 2. No Lexiscan induced chest pain or cardiac arrhythmia. 3. Normal blood pressure and heart rate response. 4. Nuclear myocardial perfusion scan pending; see separate report. Electronically Signed On 01-31-2025 09:34:33 CDT by Ruddy Luna M.D. [email or web address]
--- NOTE | 2025-01-22 07:44 | NMCV_ITS ---
NM brenna perf SPECT r/s* [id number] Arlette Lopez Age: 59 Gender: F : 1965 Exam Date: 01/22/2025 08:35 Ordering Phys: Ruddy Luna MD ([email or web address]) Technologist: ZI Marquez Exam Location: [facility] Indications: cp STRESS TEST Please see separate stress test report in [facility] for full findings IMAGE PROTOCOL Rest/Stress 1 Lexiscan Day Radiopharmaceutical Dose (mCi) Administration Site Administered by Rest: Tc-99m 10.6 IV ZI Marquez Sestamibi Stress:Tc-99m 32.5 IV ZI Farr Sestamibi Rest: 22-Jan-2025 60 Discovery 630 Stress: 22-Jan-2025 30 Discovery 630 0.4mg Lexiscan. Images obtained in supine and prone position. SPECT RESULTS Technical Quality: Good Raw Data Analysis: Normal Image Corrections: No attenuation or motion correction applied Summed Stress Score: 0 Summed Rest Score: 0 Summed Difference Score: 0 PERFUSION FINDINGS SPECT images demonstrate homogeneous tracer distribution throughout the myocardium. FUNCTIONAL RESULTS (calculated via Gated SPECT) Stress Image LV EF (%): 80 Stress EDV (mL):55 TID: 0.94 Stress ESV (mL):11 FUNCTIONAL FINDINGS: There is normal left ventricular systolic function. IMPRESSIONS Myocardial perfusion imaging is normal. Francisco Javier Michael MD (Electronically Signed) Final Date: 22 January 2025 21:09 S
[2025-01-22 09:12] VITALS: BP 120/64; PULSE 86
== END 2025-01-22 07:26 | disposition home or self-care (01) ==
LOC: CDL 07:29
PROVIDERS: PCP Nurse Practitioner Family; Visit Provider Internal Medicine Cardiovascular Disease
DX: R07.9 Chest pain, unspecified (principal)
CPT/HCPCS: 36415; 78452; 93017; 96374; A9500; J2785